=== PATIENT | male | born 1975 | race Caucasian/White ===

== ENCOUNTER 2021-05-18 08:39 | Outpatient (CLI) | payer MEDICAID, SELFPAY ==
--- NOTE | 2021-05-18 09:15 | XR_ITS ---
WS: [id number] PROCEDURE: XR chest 2V* [id number] CLINICAL INFORMATION: BRONCHITIS COMPARISON: September 23, 2015 FINDINGS: Heart: Cardiomegaly. Lungs: Moderate chronic emphysematous changes. No acute pulmonary infiltrates. A few tiny calcified g ranulomas. No focal pneumonia or pleural fluid. Calcified hilar nodes. Bones: Mild thoracic kyphosis. XR/XR chest 2V* [id number] IMPRESSION: 1. Stable cardiomegaly. 2. No acute pulmonary infiltrates. 3. No focal pneumonia or pleural fluid. 4. Chronic calcified granulomas
== END 2021-05-18 08:40 | disposition home or self-care (01) ==
PROVIDERS: Visit Provider Nurse Practitioner Family
DX: J40 Bronchitis, not specified as acute or chronic (principal); I51.7 Cardiomegaly; J84.10 Pulmonary fibrosis, unspecified
CPT/HCPCS: 71046

== ENCOUNTER 2023-02-19 12:10 | Outpatient (CLI) | payer MEDICAID, SELFPAY ==
--- NOTE | 2023-02-19 12:18 | XR_ITS ---
WS: [id number] EXAMINATION: XR chest 2V* [id number] REASON FOR EXAM: MODERATE PERSISTENT ASTHMATIC BRONCHITIS W/ACUTE EXACERBATIO COMPARISON: 05/18/2021 ORDER DATE: 02/19/2023 12:26 PM FINDINGS: Heart: Cardiomegaly. Lungs: Moderate chronic emphysematous changes. There is a vague nodular perhaps a cluster 2 or more n odules in the left costophrenic angle not present on the prior study. These cannot be entirely locali zed on the lateral chest view. These could be due to artifacts.. No acute pulmonary infiltrates. A fe w tiny calcified granulomas. No focal pneumonia or pleural fluid. Calcified hilar nodes. Bones: Mild thoracic kyphosis. XR/XR chest 2V* [id number] Impression: 1. Stable cardiomegaly. 2. No acute pulmonary infiltrates. 3. No focal pneumonia or pleural fluid. 4. Vague nodular foci in the left costophrenic angle Recommend follow-up study in inspiration and expiration if feasible prior to po ssibly necessary CT imaging for further evaluation
== END 2023-02-19 12:11 | disposition home or self-care (01) ==
LOC: RAD 12:13
PROVIDERS: PCP Nurse Practitioner Family; Visit Provider Nurse Practitioner Family
DX: J45.41 Moderate persistent asthma with (acute) exacerbation (principal); I51.7 Cardiomegaly
CPT/HCPCS: 71046